=== PATIENT | female | born 1960 | race Caucasian/White ===

== ENCOUNTER → 2017-07-16 | Outpatient (CLI) | payer BC ==
--- NOTE | 2017-07-16 19:34 | DIAGNOSTIC IMAGING REPORT ---
MRI OF LUMBAR SPINE WITHOUT IV CONTRAST CLINICAL HISTORY: Chronic low back pain. COMPARISON STUDY: No priors. TECHNIQUE: MRI of the lumbar spine is performed utilizing various T1 and T2-weighted sequences in the axial and sagittal planes. IV contrast was not administered for this examination. FINDINGS: Lumbar spine: Marrow signal intensity is heterogeneous. Vertebral body height and alignment are maintained throughout the lumbar spine. A limbus vertebral body is noted at L3. Chronic multilevel degenerative endplate change is observed. Large hemangiomas are identified in the bodies of L3 and L4. Mild endplate edema is seen at L3-L4 and L4-L5. Tiny anterior osteophytes are seen throughout. The transverse and spinous processes appear intact. Intervertebral discs: Degenerative disc desiccation and loss of height is seen throughout the lumbar spine. Loss of height is moderate at L3-L4 and L4-L5. Spinal cord: The visualized spinal cord is normal in morphology and signal intensity. The conus medullaris terminates at the L1-L2 interspace. The nerve roots of the cauda equina are normal in morphology. L1-L2: Unremarkable. L2-L3: There is minimal disc bulge. The central canal and neural foramina are patent. L3-L4: There is a small posterior disc bulge. There is no significant acquired compromise of the central canal. The neural foramina are patent. Mild facet arthropathy is of no consequence. L4-L5: There is broad-based posterior disc bulge with annular fissure. In conjunction with hypertrophy of the ligamentum flavum there is moderate central canal stenosis at this level with a minimum AP diameter of 7 mm. There is bilateral subarticular stenosis. The disc bulge abuts the transiting nerve roots. Facet arthropathy causes mild right greater than left neural foraminal stenosis. L5-S1: There is broad-based disc bulge eccentric to the left. This causes severe left-sided subarticular stenosis and impinges on the exiting left L5 nerve root. Facet arthropathy causes moderate bilateral neural foraminal stenosis, left greater than right. There is nonspecific marrow edema identified on both sides of the left facet joint. Sacrum: The visualized sacrum is normal in morphology and signal intensity. Small Tarlov cysts are incidentally noted in the lower sacral region. Soft tissues: There is fatty atrophy of the paraspinous and iliopsoas musculature. The paraspinous soft tissues are otherwise normal in appearance. The partially imaged retroperitoneal structures are grossly unremarkable but incomplete assessed. IMPRESSION: 1. Multilevel lumbosacral spondylosis as above. There is at least moderate central canal stenosis seen at L4-L5. See discussion for detailed level by level analysis. 2. Degenerative disc disease and endplate change as above. 3. Facet arthropathy is seen in the lower lumbar region with nonspecific marrow edema identified around the left facet at L5-S1. This is likely on a degenerative basis. Clinical correlation will be required. Dictated: 07/16/2017 6:59 PM Transcribed: 07/16/2017 7:34 PM [email or web address] Electronically signed by: William Escalona M.D. 07/16/2017 7:39 PM Dictated Date/Time: 07/16/2017 6:59 PM
== END | disposition home or self-care (01) ==
LOC: C.MRI 17:47 → MERGE 17:47
PROVIDERS: ATTEND Family Medicine
DX: M51.26 Other intervertebral disc displacement, lumbar region (principal); M47.817 Spondylosis without myelopathy or radiculopathy, lumbosacral region; M48.061 Spinal stenosis, lumbar region without neurogenic claudication; M51.36 Other intervertebral disc degeneration, lumbar region; M12.88 Other specific arthropathies, not elsewhere classified, other specified site